=== PATIENT | female | born 1990 | race Caucasian/White ===

== ENCOUNTER 2016-08-15 17:42 | Outpatient (CLI) | payer OTHER ==
[~2016-08-15] VITALS: Ht 152.4 cm; Wt 72.8 kg
[~2016-08-15 17:42] MED LIST: ACET500C5 PO; CEPH-443 PO; UDTYL PO
[2016-08-15 17:55] VITALS: BP 119/58; PULSE 82; RESP 20; Ht 152.4 cm; Wt 72.8 kg
--- NOTE | 2016-08-15 20:55 | QN ---
Documentation Comment 26 y/o female t 39.5 weeks here for C/S labor contractions Cx: long and 1 cm Vtx after 2 hrs of walking ni cervical change will see patient in clinic in AM LEXIE VÁSQUEZ MD Aug 15, 2016 20:54
== END 2016-08-15 21:00 | disposition home or self-care (01) ==
LOC: OBT 17:42 → L-D 17:42 → OBT 21:00
PROVIDERS: ATTEND Obstetrics & Gynecology
DX: O47.1 False labor at or after 37 completed weeks of gestation (principal); Z3A.39 39 weeks gestation of pregnancy
CPT/HCPCS: G0463

== ENCOUNTER 2016-08-17 04:24 | Inpatient (IN) | payer OTHER ==
[~2016-08-17] VITALS: Ht 152.4 cm; Wt 74.1 kg
[~2016-08-17 04:24] MED LIST changes: -CEPH-443 PO
[2016-08-17 04:53] VITALS: BP 121/85; PULSE 82; RESP 18
[2016-08-17] MEDS ORDERED: PRENAT PO (04:56)
[2016-08-17] MEDS ORDERED: CARBOPROST 250 MCG INJ IM PRN (08:00)
[2016-08-17] MEDS ORDERED: METHYLERGONOVINE 0.2 MG INJ IM PRN (08:00)
[2016-08-17] MEDS ORDERED: OXYTOCIN 30 UNITS/LR 500 ML IV PRN (08:00)
[2016-08-17] MEDS ORDERED: IBUPROFEN 600 MG TAB PO PRN (08:00)
[2016-08-17] MEDS ORDERED: LACTATED RINGER'S 1,000 ML IV PRN (08:00)
[2016-08-17] MEDS ORDERED: BUTORPHANOL 2 MG INJ IV PRN (08:00)
[2016-08-17] MEDS ORDERED: OXYTOCIN 30 UNITS/LR 500 ML IV SCH ×2 (08:00→10:30)
[2016-08-17] MEDS ORDERED: MISOPROSTOL 200 MCG TAB PR PRN (08:00)
[2016-08-17] MEDS ORDERED: LIDOCAINE 1% (MPF) 30 ML INJ INJ PRN (08:00)
[2016-08-17] MEDS ORDERED: AMPICILLIN 2 GM/NS (PMX) 100 ML IV ONE (08:00)
--- NOTE | 2016-08-17 08:11 | TRIAGE ---
OB Triage Datetime Report Generated by CPN: 08/17/2016 08:10 Datetime: 08/17/2016 07:19 Labor Evaluation Frequency: 3-6 Monitor Mode: External Duration (sec)2399: 60-100 Quality: Moderate Pattern: Normal: <= 5 Contractions in 10 Minutes Resting Tone Fitzhugh: Relaxed Heart Rate FHR Baseline Rate: 130 Monitor Mode: External US FHR Baseline Changes: No Baseline Change Variability: Moderate 6-25 bpm Accelerations: 15X15 Decelerations: None Category: Category I Vaginal Exam Dilatation (cms): 3.0 Effacement (%): 80 Station: -2 Exam By: Anabel Lehman Membrane Status: Intact Vaginal Bleeding: Scant Cervix, Consistency: Soft Cervix, Position: Posterior Presentation 'A': Cephalic Datetime: 08/17/2016 06:52 Stage of : OB Triage Monitor Mode: External Resting Tone Fitzhugh: Relaxed Heart Rate FHR Baseline Rate: 120 Monitor Mode: External US Category: Category I Pain Assessment Pain Scale: 7 Pain Presence: Intermittent Pain Type: Contraction Pain Location: Abdomen Datetime: 08/17/2016 05:13 Stage of : OB Triage Datetime: 08/17/2016 05:07 Labor Evaluation Frequency: 3-7 Monitor Mode: External Duration (sec)2399: 40-100 Quality: Moderate Pattern: Normal: <= 5 Contractions in 10 Minutes Resting Tone Fitzhugh: Relaxed Heart Rate FHR Baseline Rate: 130 Monitor Mode: External US FHR Baseline Changes: No Baseline Change Variability: Moderate 6-25 bpm Accelerations: 15X15 Decelerations: None Category: Category I Vaginal Exam Dilatation (cms): 2.0 Effacement (%): 80 Station: -2 Exam By: Anabel Lehman Membrane Status: Intact Vaginal Bleeding: Scant Cervix, Consistency: Soft Cervix, Position: Posterior Presentation 'A': Cephalic Datetime: 08/17/2016 04:39 Time of Arrival: 08/17/2016 04:25 EGA: 40.0 Arrived By: Wheelchair Arrived From: Home Chief Complaint: w/ c/o ucs Movement: Present Contractions: Regular Time Contractions Began: 08/16/2016 23:00 Contractions: q6-8 Rupture of Membranes: Denies Vaginal Bleeding: None Vaginal Discharge: Present Recent Sexual Intercouse: Denies Abdominal Trauma: Not Applicable Patient Complaints: Contractions Time Provider Notified: 08/17/2016 04:35 Provider Notified: Dr Simons Initial Plan: EFM, SVE Datetime: 08/17/2016 04:32 Maternal Assessment Level of Consciousness: Fully Conscious Headache: Denies Blurred Vision: No Nausea/Vomiting: Denies RUQ Epigastric Pain: Denies Facial Edema: None Labor Evaluation Frequency: placed Monitor Mode: External Resting Tone Fitzhugh: Relaxed Monitor Mode: External US Comments: FHT 130 Pain Assessment Pain Scale: 9 Pain Presence: Intermittent Pain Type: Contraction Pain Location: Abdomen Datetime: 08/15/2016 20:47 Labor Evaluation Frequency: Irregular Monitor Mode: External Quality: Mild Pattern: Normal: <= 5 Contractions in 10 Minutes Resting Tone Fitzhugh: Relaxed Heart Rate FHR Baseline Rate: 130 Monitor Mode: External US Variability: Moderate 6-25 bpm Accelerations: 15X15 Decelerations: None Category: Category I Pain Assessment Pain Scale: 4 Pain Presence: Intermittent Pain Type: Cramping Pain Location: Abdomen Datetime: 08/15/2016 20:11 Vaginal Exam Dilatation (cms): 1.0 Effacement (%): 50 Station: -2 Exam By: Cony Camilokevin RN Membrane Status: Intact Vaginal Bleeding: None Cervix, Consistency: Moderate Cervix, Position: Posterior Datetime: 08/15/2016 19:46 Pain Assessment Pain Scale: 6 Pain Presence: Intermittent Pain Type: Cramping Pain Location: Abdomen Datetime: 08/15/2016 18:19 Stage of : OB Triage Assessment Type: Triage Maternal Assessment Level of Consciousness: Fully Conscious DTR's/Clonus: DTRs 2+; No Clonus Headache: Denies Blurred Vision: No Respiratory Effort: Unlabored; Regular Rhythm; Equal Expansion Breath Sounds, Left: Clear and Equal Breath Sounds, Right: Clear and Equal Nausea/Vomiting: Denies RUQ Epigastric Pain: Denies Lower Extremities Edema: None Degree: None Upper Extremities Edema: None Degree: None Facial Edema: None Temperature Route: Oral Fall Risk Assessment History of Falling: (0) No Secondary Diagnosis: (0) No Ambulatory Aid: (0) Bedrest/Nurse Assist IV Therapy: (0) No Gait: (0) Normal/Bedrest/Immobile Mental Status: (0) Oriented to Own Ability Fall Score: 0 Fall Risk Score Definition: No Risk: No action required Labor Evaluation Frequency: X2 Monitor Mode: External Duration (sec)2399: 110 Pattern: Normal: <= 5 Contractions in 10 Minutes Resting Tone Fitzhugh: Relaxed Heart Rate FHR Baseline Rate: 135 Monitor Mode: External US Variability: Moderate 6-25 bpm Accelerations: 15X15 Decelerations: None Category: Category I Pain Assessment Pain Scale: 0 Pain Presence: None/Denies Pain Type: N/A Datetime: 08/15/2016 18:17 Time of Arrival: 08/15/2016 17:35 EGA: 39.5 Arrived By: Ambulatory Arrived From: Home Chief Complaint: UC'S Movement: Present Contractions: Irregular Time Contractions Began: 08/15/2016 08:00 Rupture of Membranes: Denies Vaginal Bleeding: None Vaginal Discharge: Denies Recent Sexual Intercouse: Denies Abdominal Trauma: Not Applicable Patient Complaints: Contractions Time Provider Notified: 08/15/2016 18:28 Provider Notified: DR. ADORNO Initial Plan: EFM X2
[2016-08-17] MEDS: LACTATED RINGER'S 1,000 ML IV SCH ×2 (08:52→12:02)
[2016-08-17 08:56] LABS: ADD SCAN DIFF NO
[2016-08-17 09:09] LABS: BASOPHILS % 0.2 % (0.0-2.0); EOSINOPHILS % 0.3 % (0.0-7.0); HEMOGLOBIN 11.2 g/dl (12.0-16.0); LYMPHOCYTES # 2.6 10^3/ul (0.8-2.9); LYMPHOCYTES % 22.4 % (15.0-51.0); MEAN CORPUSCULAR HEMOGLOBIN 28.1 pg (29.0-33.0); MEAN CORPUSCULAR HGB CONC 33.9 g/dl (32.0-37.0); MEAN CORPUSCULAR VOLUME 82.7 fl (82.0-101.0); MEAN PLATELET VOLUME 11.9 fl (7.4-10.4); MONOCYTE # 0.9 10^3/ul (0.3-0.9); NEUTROPHIL # 7.9 10^3/ul (1.6-7.5); NEUTROPHILS % 68.7 % (39.0-77.0); PLATELET COUNT 238 10^3/UL (140-415); RED BLOOD COUNT 3.99 10^6/ul (4.20-5.40); RED CELL DISTRIBUTION WIDTH 14.7 % (11.5-14.5); WHITE BLOOD COUNT 11.6 10^3/ul (4.8-10.8)
[2016-08-17 09:11] LABS: INR 0.86; PROTIME 11.7 Sec (12.2-14.2); PT RATIO 0.9
[2016-08-17 09:12] LABS: PARTIAL THROMBOPLASTIN TIME 27.5 Sec (25.0-35.0)
[2016-08-17] MEDS ORDERED: FENTAnyl 2MCG/ML-ROPIV 0.2% 100 ML ONE (10:14)
[2016-08-17] MEDS ORDERED: BUPIVACAINE 0.25% (MPF) 30 ML INJ ONE (10:15)
[2016-08-17] MEDS ORDERED: NALOXONE (0.4 MG/ML) INJ IV PRN (11:00)
[2016-08-17] MEDS: FENTAnyl 2MCG/ML-ROPIV 0.2% 100 ML BAG EPI SCH ×2 (11:18→20:49)
[2016-08-17] MEDS: AMPICILLIN 1 GM/NS (PMX) 50 ML IV SCH ×3 (12:59→20:49)
--- NOTE | 2016-08-17 18:29 | HP ---
Date/Time of Note Date/Time of Note DATE: 08/17/16 TIME: 18:25 OB - History Hx of Present Free Text/Dictation admitted in labor at 40 + weeks Last Menstrual Period: Nov 11, 2015 Estimated Due Date: Aug 17, 2016 : 1 Para: 0 Care: Good Care Ultrasounds: Normal mid trimester US Obstetrical Complications: None Past Family/Social History * Past Medical, Surgical, Family and Obstetric Histories reviewed from chart. Blood Type: O+ Rubella: immune RPR/VDRL: Negative GBS Status: Negative HBsAG: Negative OB Admission Exam Vital Signs Vital Signs Vital Signs Date Time Temp Pulse Resp B/P Pulse Ox O2 Delivery O2 Flow Rate FiO2 08/17/16 04:53 97.9 82 18 121/85 Room Air Physical Exam HEENT: WNL Heart: Rhythm Normal Lungs: Clear, Equal Abdomen: WNL Extremities: Normal Reflexes: Normal Cervical Dilatation: 3cm Effacement: 75% Membranes: Intact Accelerations: Accelerations Present Decelerations: No Decelerations Varibility: Marked Contractions on Admission: 6-10 Minutes Apart Date/Time Contractions Began: 08/17/2016 Frequency of Contractions: q 4-5 Duration: >60 seconds Intensity: Moderate Last 72 hours Lab Results CBC & BMP 08/17/16 08:45 OB Assessment/Plan Other Assessment: term gestation labor pains Induction Method: per Pitocin Protocol LEXIE VÁSQUEZ MD Aug 17, 2016 18:29
[2016-08-17] MEDS ORDERED: ONDANSETRON 4 MG INJ ONE (18:30)
[2016-08-17] MEDS ORDERED: ONDANSETRON 4 MG INJ IV PRN (19:00)
[2016-08-18] MEDS: LACTATED RINGER'S 1,000 ML IV SCH ×2 (01:12→05:52)
[2016-08-18] MEDS: AMPICILLIN 1 GM/NS (PMX) 50 ML IV SCH ×4 (01:13→13:56)
--- NOTE | 2016-08-18 01:56 | PN ---
Date/Time of Note Date/Time of Note DATE: 08/18/16 TIME: 01:55 OB Subjective Subjective Subjective went to [facility] patient 4/thick/high reassuring status cat I FHT ZULLY BRISENO MD Aug 18, 2016 01:55
[2016-08-18] MEDS: FENTAnyl 2MCG/ML-ROPIV 0.2% 100 ML BAG EPI SCH ×2 (03:58→10:07)
[2016-08-18] MEDS: OXYTOCIN 30 UNITS/LR 500 ML IV SCH ×2 (14:30→15:51)
[2016-08-18] MEDS ORDERED: MINERAL OIL LIGHT 10 ML VIAL TOP ONE (14:30)
--- NOTE | 2016-08-18 15:51 | LDN ---
Date/Time of Note Date/Time of Note DATE: 08/18/16 TIME: 15:47 Delivery Summary of a viable over midline episiotomy Weeks of Gestation 40+ Placenta Delivered: Spontaneously, Intact & Complete Meconium: none Episiotomy: Yes Laceration repair: midline episiotomy was repaired in layrs with 2 0 Vicryk and 2 0 Chromic Anesthesia type: Epidural Estimated blood loss: 300 Sponge & Needle done & correct: Yes All needle counts correct: Yes Any foreign bodies felt in the: No Problems: Infant Delivery Information Sex Sex: female Apgars 1 Minute: 9 5 Minute: 9 Suctioning Nose & mouth suctioned at sarath: Yes Delee suction performed: No Umbilical Cord Umbilical cord with: 3 Vessels Cord presentations: no nuchal cord Cord Blood was obtained: Yes Mother & Baby Disposition Disposition Mom & Baby to Maternity; Good: Yes (mother and baby were recovered in good condition ) Mom transferred to: Other (maternity ) Baby to NICU: No LEXIE VÁSQUEZ MD Aug 18, 2016 15:51
[2016-08-18 17:45] VITALS: BP 126/71; PULSE 78; RESP 19
[2016-08-18] MEDS ORDERED: BENZOCAINE 20% 56 ML SPRAY TOP PRN (18:00)
[2016-08-18] MEDS ORDERED: OXYTOCIN 30 UNITS/LR 500 ML IV PRN (18:00)
[2016-08-18] MEDS ORDERED: CARBOPROST 250 MCG INJ IM PRN (18:00)
[2016-08-18] MEDS ORDERED: ACETAMINOPHEN/CODEINE #3 TAB PO PRN (18:00)
[2016-08-18] MEDS ORDERED: DIBUCAINE 1% 30 GM OINT PR PRN (18:00)
[2016-08-18] MEDS ORDERED: ZOLPIDEM 5 MG TAB PO PRN (18:00)
[2016-08-18] MEDS ORDERED: MISOPROSTOL 200 MCG TAB PR PRN (18:00)
[2016-08-18] MEDS ORDERED: METHYLERGONOVINE 0.2 MG INJ IM PRN (18:00)
[2016-08-18] MEDS ORDERED: WITCH HAZEL/GLYCERIN PAD PR PRN (18:00)
[2016-08-18] MEDS ORDERED: IBUPROFEN 600 MG TAB PO SCH (18:00)
[2016-08-18] MEDS ORDERED: DIPHENHYDRAMINE 50 MG CAP PO ONE (18:30)
[2016-08-18 19:50] VITALS: BP 92/55; PULSE 85; RESP 18
[2016-08-18] MEDS: LACTATED RINGER'S 1,000 ML IV* SCH (20:42)
[2016-08-18] MEDS: SENNA/DOCUSATE NA (8.6MG/50MG) TAB PO SCH (21:16)
[2016-08-18] MEDS: LANOLIN 7 GM TUBE TOP PRN (21:17)
[2016-08-18] MEDS: ACETAMINOPHEN/CODEINE #3 TAB PO PRN (21:19)
[2016-08-18] MEDS: MAGNESIUM HYDROXIDE 30ML CUP PO SCH (21:26)
[2016-08-19] MEDS: CEPHALEXIN 500 MG CAP PO SCH ×6 (01:00→23:54)
[2016-08-19] MEDS: LACTATED RINGER'S 1,000 ML IV* SCH ×2 (01:51→09:51)
[2016-08-19 03:28] VITALS: BP 111/58; PULSE 80; RESP 19
[2016-08-19] MEDS: ACETAMINOPHEN/CODEINE #3 TAB PO PRN ×4 (03:57→21:04)
[2016-08-19 07:40] VITALS: BP 107/64; PULSE 83; RESP 18
[2016-08-19 08:06] LABS: ADD SCAN DIFF NO
[2016-08-19 08:08] LABS: BASOPHILS % 0.2 % (0.0-2.0); EOSINOPHILS # 0.1 10^3/ul (0.0-0.5); EOSINOPHILS % 0.3 % (0.0-7.0); HEMATOCRIT 27.2 % (37.0-47.0); HEMOGLOBIN 9.2 g/dl (12.0-16.0); LYMPHOCYTES # 2.2 10^3/ul (0.8-2.9); LYMPHOCYTES % 12.9 % (15.0-51.0); MEAN CORPUSCULAR HEMOGLOBIN 28.2 pg (29.0-33.0); MEAN CORPUSCULAR HGB CONC 33.8 g/dl (32.0-37.0); MEAN CORPUSCULAR VOLUME 83.4 fl (82.0-101.0); MEAN PLATELET VOLUME 11.8 fl (7.4-10.4); MONOCYTE # 1.3 10^3/ul (0.3-0.9); MONOCYTES % 7.4 % (0.0-11.0); NEUTROPHIL # 13.6 10^3/ul (1.6-7.5); NEUTROPHILS % 78.6 % (39.0-77.0); PLATELET COUNT 183 10^3/UL (140-415); RED BLOOD COUNT 3.26 10^6/ul (4.20-5.40); RED CELL DISTRIBUTION WIDTH 15.2 % (11.5-14.5); WHITE BLOOD COUNT 17.3 10^3/ul (4.8-10.8)
[2016-08-19] MEDS: MAGNESIUM HYDROXIDE 30ML CUP PO SCH ×2 (09:05→21:04)
[2016-08-19] MEDS: SENNA/DOCUSATE NA (8.6MG/50MG) TAB PO SCH ×2 (09:05→21:04)
--- NOTE | 2016-08-19 13:24 | DS ---
Date/Time of Note Date/Time of Note home next day DATE: 08/19/16 TIME: 13:23 Obstetrical Discharge Record Final Diagnosis Final Diagnosis: Term delivered Other Final Diagnosis S/P vaginal delivery Vaginal Delivery Obstetrical Delivery: Spontaneous, Episiotomy, Repaired Complications Augmentation: Yes Condition on Discharge Physical Assessment Last Vitals: see nurses notes Voiding: Yes Bowel Movement: Yes Breast: Soft, non-tender, Filling Fundus: Firm Abdomen and Incision: soft BS + Episiotomy: Healing Calf Tenderness: No Patient Condition: Good LEXIE VÁSQUEZ MD Aug 19, 2016 13:24
--- NOTE | 2016-08-19 13:25 | PD.PPDC ---
RETAIL DEPARTMENT SUPERVISOR Discharge Instruction Provider Information Physician Information 26 y/o female had vaginal delivery Diagnosis Final Diagnosis: S/P vaginal delivery Condition Patient Condition: Good Diet Diet: Resume Regular Diet Activity/Restrictions Activity: Normal Activity May Shower Restrictions: Nothing in the Vagina Return to Work or School: October 02, 2016 Follow-up Follow-up with Physician: 4, Week/Weeks (in clinic ) Return to clinic for OB Instructions: Breast Tenderness Depression LEXIE VÁSQUEZ MD Aug 19, 2016 13:25
[2016-08-19] MEDS ORDERED: ACET325T40 PO (13:26)
[2016-08-19] MEDS ORDERED: ACETAMINOPHEN 325 MG TAB PO PRN (13:30)
[2016-08-19] MEDS: LANOLIN 7 GM TUBE TOP PRN (15:49)
[2016-08-19 16:00] VITALS: BP 110/76; PULSE 88; RESP 18
[2016-08-19 20:25] VITALS: BP 113/74; PULSE 82; RESP 19
[2016-08-20 04:20] VITALS: BP 128/73; PULSE 77; RESP 18
[2016-08-20] MEDS: CEPHALEXIN 500 MG CAP PO SCH ×2 (05:39→11:47)
[2016-08-20 07:30] LABS: ADD SCAN DIFF NO
[2016-08-20 07:39] LABS: BASOPHILS % 0.1 % (0.0-2.0); EOSINOPHILS # 0.1 10^3/ul (0.0-0.5); EOSINOPHILS % 0.8 % (0.0-7.0); HEMATOCRIT 26.4 % (37.0-47.0); HEMOGLOBIN 8.8 g/dl (12.0-16.0); LYMPHOCYTES # 1.9 10^3/ul (0.8-2.9); LYMPHOCYTES % 13.8 % (15.0-51.0); MEAN CORPUSCULAR HGB CONC 33.3 g/dl (32.0-37.0); MEAN CORPUSCULAR VOLUME 84.1 fl (82.0-101.0); MEAN PLATELET VOLUME 11.7 fl (7.4-10.4); MONOCYTE # 1.1 10^3/ul (0.3-0.9); MONOCYTES % 8.2 % (0.0-11.0); NEUTROPHIL # 10.6 10^3/ul (1.6-7.5); NEUTROPHILS % 76.4 % (39.0-77.0); PLATELET COUNT 205 10^3/UL (140-415); RED BLOOD COUNT 3.14 10^6/ul (4.20-5.40); RED CELL DISTRIBUTION WIDTH 15.4 % (11.5-14.5); WHITE BLOOD COUNT 13.9 10^3/ul (4.8-10.8)
[2016-08-20 07:50] VITALS: BP 122/74; PULSE 84; RESP 16
[2016-08-20] MEDS: ACETAMINOPHEN/CODEINE #3 TAB PO PRN (08:07)
[2016-08-20] MEDS: MAGNESIUM HYDROXIDE 30ML CUP PO SCH (08:27)
[2016-08-20] MEDS: SENNA/DOCUSATE NA (8.6MG/50MG) TAB PO SCH (08:27)
[2016-08-20] MEDS ORDERED: DIPHTH/TET/ACEL PERTUSS (ADULT) 0.5 ML VIAL IM* ONE (09:00)
[2016-08-20] MEDS ORDERED: MEASLES,MUMPS,RUBELLA VACCINE INJ SC* ONE (09:00)
[2016-08-20] MEDS ORDERED: VARICELLA VACCINE LIVE/PF 1,350 UNIT/0.5 ML ML SC* ONE (09:00)
== END 2016-08-20 12:20 | disposition home or self-care (01) | DRG 775 ==
LOC: OBT 04:24 → L-D 04:25 → OBT 07:58 → L-D 08:00 → PP1 08-18 17:45
PROVIDERS: ADMIT Obstetrics & Gynecology; ATTEND Obstetrics & Gynecology
PROC: 10E0XZZ Delivery of Products of Conception, External Approach (ICD-10-PCS; principal; 2016-08-17)
PROC: 0W8NXZZ Division of Female Perineum, External Approach (ICD-10-PCS; 2016-08-17)
DX: O80 Encounter for full-term uncomplicated delivery (principal); Z37.0 Single live birth; Z3A.40 40 weeks gestation of pregnancy
CPT/HCPCS: 62319; 85025; 85610; 85730; 86592; 86900; 86901; 90715; 90716; G0463; J0290; J2405; J2590; J3010; J7120

== ENCOUNTER 2016-12-12 05:58 | Emergency (ER) | payer OTHER ==
[~2016-12-12] VITALS: Ht 152.4 cm; Wt 61.4 kg
[~2016-12-12 05:58] MED LIST changes: +ACET325T40 PO; -ACET500C5 PO; +PRENAT PO; -UDTYL PO
[2016-12-12 06:01] VITALS: Ht 152.4 cm; Wt 61.4 kg
[2016-12-12] MEDS ORDERED: IBUPROFEN 600 MG TAB PO ONE (06:30)
--- NOTE | 2016-12-12 06:36 | RADRPT ---
PROCEDURE: Right foot series CLINICAL INDICATION: Trauma TECHNIQUE: AP lateral and oblique images of the right foot were obtained COMPARISON: None FINDINGS: There is no evidence of acute fractures or dislocations. The bony mineralization is normal. No foc al bony blastic or lytic lesions. The soft tissues are unremarkable. IMPRESSION: Negative right foot series. RPTAT:AAJJ Anmol Dang Physician Date Time Electronically viewed and signed by Anmol Dang Physician on 12/12/2016 06:36 /
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
[2016-12-12 07:12] VITALS: BP 118/78; PULSE 78; RESP 16; TEMP 98.3
[2016-12-12] MEDS ORDERED: IBUP-1542 PO (07:21)
== END 2016-12-12 07:31 | disposition home or self-care (01) ==
LOC: E/R 05:58
DX: S90.31XA Contusion of right foot, initial encounter (principal); V49.40XA Driver injured in collision with unspecified motor vehicles in traffic accident, initial encounter
CPT/HCPCS: 73630

== ENCOUNTER 2017-08-27 19:15 | Emergency (ER) | END 2017-08-28 01:08 | disposition left against medical advice (07) ==